=== PATIENT | male | born 1955 | race Caucasian/White ===

== ENCOUNTER 2018-07-26 10:29 | Day surgery (SDC) | payer OTHER, BC ==
[2018-07-18 16:20] VITALS: BMI 25.0
[2018-07-26] MEDS ORDERED: PHENYLEPHRINE 2.5% OPHTH SOLN 15 ML BOTTLE ONE (11:23)
[2018-07-26] MEDS ORDERED: CYCLOPENTOLATE HCL 1% OPHTH SOLN 2 ML BOTTLE ONE (11:23)
[2018-07-26] MEDS ORDERED: GENTAMICIN SULFATE 0.3% OPHTHALMIC (EYE DROPS) 5ML BOTTLE ONE (11:23)
[2018-07-26] MEDS ORDERED: TROPICAMIDE 1% OPHTH SOLN 15 ML BOTTLE ONE (11:24)
[2018-07-26] MEDS ORDERED: KETOROLAC TROMETHAMINE 0.5% EYE DROP 1 DROP DROPS ONE (11:24)
[2018-07-26] MEDS ORDERED: ACETAMINOPHEN 325 MG TABLET (FP) PO PRN (14:07)
[2018-07-26] MEDS ORDERED: ACETYLCHOLINE 1:100 INTRA-OCUL 20 MG/2 ML KIT ONE ×2 (14:14→15:34)
[2018-07-26] MEDS ORDERED: LIDOCAINE HCL/PF 2% SDV 5ML VIAL ONE ×2 (14:14→14:41)
[2018-07-26] MEDS ORDERED: LIDOCAINE HCL 2% JELLY 10 ML CARTRIDGE ONE (14:14)
[2018-07-26] MEDS ORDERED: BUPIVACAINE HCL/PF 0.5% (5MG/ML) 10 ML VIAL ONE (14:14)
[2018-07-26] MEDS ORDERED: MIDAZOLAM HCL 2 MG/2 ML SINGLE DOSE VIAL ONE (14:34)
[2018-07-26] MEDS ORDERED: PROPOFOL 20 ML ONE ×2 (14:34)
[2018-07-26] MEDS ORDERED: SUCCINYLCHOLINE CHLORIDE 200 MG/10 ML VIAL ONE (14:34)
[2018-07-26] MEDS ORDERED: ACETAMINOPHEN 500 MG TABLET (FP) ONE (16:06)
[2018-07-26 16:10] VITALS: TEMP 98
--- NOTE | 2018-07-26 16:51 | OP ---
DATE OF OPERATION: 07/26/2018 TITLE OF PROCEDURE: Planned extracapsular cataract extraction, phacoemulsification and insertion of anterior chamber lens implant in the right eye; difficult cataract extraction. SURGEON: Khadar Carver MD ASSISTANT BOYS TRACK COACH: None. ANESTHESIA: Local and standby. PRECISION AGRICULTURE SPECIALIST: Cornel Gatica MD COMPLICATIONS: None. PREOPERATIVE DIAGNOSIS: A hypermature cataract, right eye. POSTOPERATIVE DIAGNOSIS: A hypermature cataract, right eye with posterior capsular tear and placement of an anterior chamber lens. FINDINGS AND PROCEDURE: After successful peribulbar anesthesia was given to the right eye in the operating room, the patient was prepped and draped in the usual manner to expose the right eye. Lid speculum was inserted. Tegaderm strips had been placed before, and the microscope brought in position over the right eye. A superior fornix-based flap was then fashioned for 12 mm using Gerardo scissors and 0.12 forceps, and hemostasis achieved with wet field cautery, and a limbal groove was fashioned for 3 mm with a crescent blade and dissecting anterior into clear cornea. A 3-mm blade was used to enter the anterior chamber, and then, under Viscoat, a 360- degree anterior capsulotomy was performed and the leaflet removed from the eye. Phacoemulsification of the entire nucleus was then done in approximately 2 minutes' time, followed by irrigation and aspiration of all cortical material, but it should be noted that it was a difficult, very hard nucleus, and at the end of the procedure, it was found that there was a posterior capsular tear which enlarged during cortical removal, which was done entirely. It was decided to place an anterior chamber lens implant. So, the vitreous space was left intact throughout this removal of cortex, and the posterior capsule was pushed back with Provisc in the posterior chamber. After Miochol and Miostat were injected to constrict the pupil down to about 2 mm, Provisc was injected into the anterior chamber to push back the iris and deepen the anterior chamber. The wound was enlarged to 6 mm. The anterior chamber lens implant was inspected carefully with the microscope, found to be free of defects, debris, and flaws, irrigated thoroughly with BSS, and was placed such that the inferior haptics were in the inferior angle and the superior haptic in the superior angle. As it was nicely centered over a nice, round pupil constricted to about 2 mm. There was no vitreous in the anterior chamber. Some of the Provisc was aspirated out of the anterior chamber, replaced with Miochol and Miostat and BSS. The wound was closed with 2 interrupted 2-0 Ethilon sutures, and it should be noted that the wound had been enlarged to 6 mm prior to the implant being placed in. Then, there was no leakage from the limbal wound, and the conjunctival- tenon flap was reapproximated. So, at this point, the implant was fixated in the anterior chamber which was deep, and the pupil was round and constricted. There was a red reflex present and globe intact, with a normotensive pressure. Topical Betoptic S and Maxitrol ophthalmic suspensions were placed after the conjunctival-tenon flap was reapproximated, and this was followed by topical bacitracin/polymyxin B ophthalmic ointment and then the Tegaderm strips and lid speculum were removed from the lids. The lids were closed, and a patch and shield placed on the eye. The patient was discharged from the operating room to the recovery area in good condition, having tolerated the procedure well. KHADAR CARVER M.D. [id number]
[2018-07-26 17:00] VITALS: BP 133/80; PULSE 77
== END 2018-07-26 17:01 | disposition home or self-care (01) ==
LOC: FASU 10:29
PROVIDERS: ATTEND Ophthalmology
PROC: 08RJ3JZ Replacement of Right Lens with Synthetic Substitute, Percutaneous Approach (ICD-10-PCS; principal; 2018-07-26 14:58)
DX: H25.21 Age-related cataract, morgagnian type, right eye (principal); H59.211 Accidental puncture and laceration of right eye and adnexa during an ophthalmic procedure

== ENCOUNTER 2023-05-10 09:12 | Day surgery (SDC) | payer MEDICARE, BC ==
[2023-04-30 12:36] VITALS: BMI 23.1
[2023-05-10] MEDS ORDERED: TROPICAMIDE 1% OPHTH SOLN 15 ML BOTTLE ONE (09:18)
[2023-05-10] MEDS ORDERED: PHENYLEPHRINE 2.5% OPTHALMIC DROP 2ML BOTTLE ONE (09:18)
[2023-05-10] MEDS: PHENYLEPHRINE 2.5% OPHTH SOLN 15 ML BOTTLE OS SCH ×3 (09:30→09:40)
[2023-05-10] MEDS: CYCLOPENTOLATE HCL 1% OPHTH SOLN 2 ML BOTTLE OS SCH ×3 (09:30→09:40)
[2023-05-10] MEDS: TROPICAMIDE 1% OPHTH SOLN 15 ML BOTTLE OS SCH ×3 (09:30→09:40)
[2023-05-10] MEDS: KETOROLAC TROMETHAMINE 0.5% EYE DROP 1 DROP DROPS OS SCH ×3 (09:30→09:40)
[2023-05-10] MEDS: OFLOXACIN 0.3% OPHTHALMIC SOLUTION 5 ML BOTTLE OS SCH ×3 (09:30→09:40)
[2023-05-10] MEDS ORDERED: BETAXOLOL HCL 0.25% OPHTHALMIC 10 ML DROPSBTL ONE (10:29)
[2023-05-10] MEDS ORDERED: EPI-SHUGARCAINE (EPINEPHRINE 0.025% & LIDOCAINE-PF 0.75%) 4ML ONE (10:29)
[2023-05-10] MEDS ORDERED: NEO/POLYMYX B SULF/DEXAMETH OPHTHALMIC 5ML BOTTLE ONE (10:29)
[2023-05-10] MEDS ORDERED: BACITRACIN/POLYMYXIN OPH OINT 3.5 GM TUBE ONE (10:29)
[2023-05-10] MEDS ORDERED: BSS (NA/CA/MG/K) BALANCED SALT SOLUTION OPHTH SOLN 15 ML BOTTLE ONE (10:29)
[2023-05-10] MEDS ORDERED: POVIDONE-IODINE 5% OPHTHALMIC PREP 30 ML SOLUTION ONE (10:29)
[2023-05-10] MEDS ORDERED: TETRACAINE 0.5% OPHTH SOLN 2 ML BOTTLE ONE (10:29)
[2023-05-10] MEDS ORDERED: MIDAZOLAM HCL 2 MG/2 ML SINGLE DOSE VIAL ONE (12:02)
[2023-05-10] MEDS ORDERED: ACETAMINOPHEN 325 MG TABLET (FP) PO PRN (12:27)
[2023-05-10 12:52] VITALS: TEMP 98.1
[2023-05-10 12:56] VITALS: BP 153/84; PULSE 74; RESP 18
== END 2023-05-10 13:05 | disposition home or self-care (01) ==
LOC: FASU 09:12
PROVIDERS: ATTEND Ophthalmology
PROC: 08RK3JZ Replacement of Left Lens with Synthetic Substitute, Percutaneous Approach (ICD-10-PCS; principal; 2023-05-10 12:09)
DX: H25.12 Age-related nuclear cataract, left eye (principal)
CPT/HCPCS: 66984; V2632